=== PATIENT | female | born 1965 | race Caucasian/White ===

== ENCOUNTER → 2024-02-05 07:51 | Outpatient (REF) | payer OTHER, SELFPAY | LOC: RAD 07:51 | PROVIDERS: ATTENDING PHYSICIAN Student in an Organized Health Care Education/Training Program; FAMILY PHYSICIAN Family Medicine | DX: I70.219 Atherosclerosis of native arteries of extremities with intermittent claudication, unspecified extremity (principal); I74.5 Embolism and thrombosis of iliac artery | CPT/HCPCS: 75635; Q9967 ==

== ENCOUNTER → 2024-03-19 08:04 | Outpatient (REF) | payer OTHER, SELFPAY | LOC: MRI 3T 08:04 | PROVIDERS: ATTENDING PHYSICIAN Family Medicine | DX: D35.00 Benign neoplasm of unspecified adrenal gland (principal) | CPT/HCPCS: 74183; A9575 ==

== ENCOUNTER → 2024-05-14 16:37 | Outpatient (REF) | payer OTHER, SELFPAY | LOC: RAD 16:37 | PROVIDERS: ATTENDING PHYSICIAN Family Medicine | DX: R91.8 Other nonspecific abnormal finding of lung field (principal); R91.1 Solitary pulmonary nodule | CPT/HCPCS: 71250 ==